=== PATIENT | female | born 1995 | race Two or more races ===

== ENCOUNTER 2025-05-18 02:48 | Emergency (ER) | payer OTHER ==
[~2025-05-18] VITALS: Ht 162.6 cm; Wt 72.6 kg
[2025-05-18 04:25] VITALS: BP 112/69; TEMP 97.9; O2SAT 97
== END 2025-05-18 04:25 | disposition home or self-care (01) ==
LOC: ER 02:49
DX: F10.10 Alcohol abuse, uncomplicated (principal); Y90.9 Presence of alcohol in blood, level not specified